=== PATIENT | male | born 1970 | race Caucasian/White ===

== ENCOUNTER 2017-03-26 11:21 | Emergency (ER) | payer SELFPAY ==
[~2017-03-26] VITALS: Ht 165.1 cm; Wt 73.0 kg
[2017-03-26] MEDS ORDERED: DIAZEPAM 2 MG TABLET PO ONE (12:00)
[2017-03-26] MEDS ORDERED: KETOROLAC 60MG/2ML VIAL IM ONE (12:00)
[2017-03-26 12:14] LABS: EOSINOPHILS % 3.3 % (0.0-5.0); HEMATOCRIT. 41.8 % (42.0-52.0); HEMOGLOBIN. 14.3 g/dL (14.0-18.0); LYMPHOCYTES % 36.1 % (20.0-50.0); MEAN CORPUSCULAR HEMOGLOBIN 30.2 pg (28.0-32.0); MEAN CORPUSCULAR VOLUME 88.3 fL (80.0-94.0); MEAN PLATELET VOLUME 7.8 fl (7.4-10.4); MONOCYTES % 8.2 % (2.0-8.0); NEUTROPHILS % 51.4 % (40.0-76.0); PLATELET 176 x1000/uL (130-400); RED BLOOD CELL COUNT 4.74 mill/uL (4.7-6.1); RED CELL DISTRIBUTION WIDTH 13.5 % (11.6-14.6)
[2017-03-26 12:20] LABS: CHLORIDE 107 mEq/L (98-107)
[2017-03-26 12:29] LABS: CARBON DIOXIDE 27 mEq/L (21-32)
[2017-03-26 13:48] LABS: CLARITY URINE CLEAR (CLEAR); COLOR URINE YELLOW (YELLOW); GLUCOSE URINE NEGATIVE (NEGATIVE); KETONES URINE NEGATIVE (NEGATIVE); LEUKOCYTE ESTERASE URINE NEGATIVE (NEGATIVE); NITRITE URINE NEGATIVE (NEGATIVE); OCCULT BLOOD URINE NEGATIVE (NEGATIVE); PH URINE 7.5 (4.5-8.0); PROTEIN URINE NEGATIVE (NEGATIVE); SPECIFIC GRAVITY URINE 1.021 (1.005-1.030); UROBILINOGEN URINE 0.2 E.U./dL (0.2-1.0)
[2017-03-26 14:30] VITALS: BP 128/73
== END 2017-03-26 14:32 | disposition home or self-care (01) ==
LOC: ER 11:21
DX: S29.012A Strain of muscle and tendon of back wall of thorax, initial encounter (principal); K21.9 Gastro-esophageal reflux disease without esophagitis; J45.909 Unspecified asthma, uncomplicated; X50.0XXA Overexertion from strenuous movement or load, initial encounter; Y93.E1 Activity, personal bathing and showering; Y99.8 Other external cause status; Y92.89 Other specified places as the place of occurrence of the external cause
CPT/HCPCS: 36415; 80053; 81003; 83690; 85025; 96372; 99284; J1885

== ENCOUNTER 2020-11-25 14:11 | Emergency (ER) | payer SELFPAY ==
[~2020-11-25] VITALS: Ht 170.2 cm; Wt 68.0 kg
[2020-11-25] MEDS ORDERED: MAGNESIUM/ALUMINUM HYDROXIDE/SIMETHICONE 30ML UDC PO STA (15:50)
[2020-11-25 16:11] LABS: CHLORIDE 108 mEq/L (98-107)
[2020-11-25 16:13] LABS: BASOPHILS % 0.8 % (0.0-2.0); HEMATOCRIT. 46.3 % (42.0-52.0); HEMOGLOBIN. 15.4 g/dL (14.0-18.0); LYMPHOCYTES % 37.6 % (20.0-50.0); MEAN CORPUSCULAR HEMOGLOBIN 30.1 pg (28.0-32.0); MEAN CORPUSCULAR VOLUME 90.4 fL (80.0-94.0); MONOCYTES % 5.5 % (2.0-8.0); NEUTROPHILS % 53.1 % (40.0-76.0); PLATELET 196 x1000/uL (130-400); RED BLOOD CELL COUNT 5.12 mill/uL (4.7-6.1); RED CELL DISTRIBUTION WIDTH 13.5 % (11.6-14.6)
[2020-11-25 17:01] LABS: CLARITY URINE CLEAR (CLEAR); COLOR URINE YELLOW (YELLOW); KETONES URINE NEGATIVE (NEGATIVE); LEUKOCYTE ESTERASE URINE NEGATIVE (NEGATIVE); NITRITE URINE NEGATIVE (NEGATIVE); OCCULT BLOOD URINE NEGATIVE (NEGATIVE); PH URINE 6.5 (4.5-8.0); PROTEIN URINE NEGATIVE (NEGATIVE); SPECIFIC GRAVITY URINE 1.024 (1.005-1.030); UROBILINOGEN URINE 0.2 E.U./dL (0.2-1.0)
[2020-11-25] MEDS ORDERED: OMEP20CA14 MT (17:37)
[2020-11-25] MEDS ORDERED: KETOROLAC 15MG/ML VIAL IV ONE (17:45)
[2020-11-25 18:16] VITALS: BP 129/79
== END 2020-11-25 18:06 | disposition home or self-care (01) ==
LOC: ER 14:11
DX: R07.89 Other chest pain (principal); R10.13 Epigastric pain; M54.2 Cervicalgia; M25.512 Pain in left shoulder; M25.511 Pain in right shoulder; R03.0 Elevated blood-pressure reading, without diagnosis of hypertension; D72.819 Decreased white blood cell count, unspecified
CPT/HCPCS: 36415; 71045; 80053; 81003; 83690; 84484; 85025; 93005; 96374; 99284; J1885

== ENCOUNTER 2021-10-05 23:38 | Emergency (ER) | payer SELFPAY ==
[~2021-10-05] VITALS: Ht 167.6 cm; Wt 65.0 kg
[~2021-10-05 23:38] MED LIST: OMEP20CA14 MT
[2021-10-06] MEDS ORDERED: IBUPROFEN 600MG TABLET PO ONE (00:15)
[2021-10-06 00:21] VITALS: BP 159/78
[2021-10-06] MEDS ORDERED: IBUP-2029 MT (03:02)
== END 2021-10-06 03:20 | disposition home or self-care (01) ==
LOC: ER 23:38
DX: S09.8XXA Other specified injuries of head, initial encounter (principal); S39.81XA Other specified injuries of abdomen, initial encounter; S39.012A Strain of muscle, fascia and tendon of lower back, initial encounter; S16.1XXA Strain of muscle, fascia and tendon at neck level, initial encounter; V49.69XA Unspecified car occupant injured in collision with other motor vehicles in traffic accident, initial encounter; Y93.89 Activity, other specified; Y92.488 Other paved roadways as the place of occurrence of the external cause
CPT/HCPCS: 71045; 72040; 72100; 74176; 99284